=== PATIENT | female | born 1995 | race Caucasian/White ===

== ENCOUNTER 2016-07-01 12:23 | Emergency (ER) | payer OTHER ==
[2016-07-01 12:28] VITALS: BP 126/80
[2016-07-01] MEDS ORDERED: PREDNISONE 20 MG TABLET PO ONE (12:36)
[2016-07-01] MEDS ORDERED: DIPHENHYDRAMINE HCL 50 MG CAPSULE PO ONE (12:37)
[2016-07-01] MEDS ORDERED: FAMOTIDINE 20 MG TABLET PO ONE (12:37)
--- NOTE | 2016-07-01 12:37 | ER Document Report ---
ED Medical Screen (RME) - General Stated Complaint: SKIN ISSUE Notes: 21 yo female c/o hive like rash since last night. no new contacts. no trouble breathing or swallowing TRAVEL OUTSIDE OF THE [place] IN LAST 30 DAYS: No Past Medical History - Past Medical History Cardiac Medical History: Denies: Hx Atrial Fibrillation, Hx Congestive Heart Failure, Hx Heart Attack , Hx Hypercholesterolemia, Hx Hypertension Pulmonary Medical History: Denies: Hx Asthma, Hx Bronchitis, Hx COPD, Hx Pneumonia, Hx Tuberculosis Neurological Medical History: Denies: Hx Migraine, Hx Seizures Endocrine Medical History: Denies: Hx Diabetes Mellitus Type 1, Hx Diabetes Mellitus Type 2 Renal/ Medical History: Denies: Hx End Stage Renal Disease, Hx Kidney Stones GI Medical History: Denies: Hx Gastroesophageal Reflux Disease, Hx Hiatal Hernia , Hx Ulcer Musculoskeltal Medical History: Denies Hx Arthritis, Reports Hx Musculoskeletal Trauma - fx arm Psychiatric Medical History: Denies: Hx Attention Deficit Hyperactivity Disorder, Hx Bipolar Disorder, Hx Depression, Hx Schizophrenia Traumatic Medical History: Reports: Hx Fractures - arm Past Surgical History: Reports: Hx Tubal Ligation. Denies: Hx Abdominal Surgery , Hx Appendectomy, Hx Bowel Surgery, Hx Breast Surgery, Hx Cardiac Catheterization, Hx Cardiac Surgery, Hx Section, Hx Cholecystectomy, Hx Genitourinary Surgery, Hx Gynecologic Surgery, Hx Hysterectomy, Hx Kidney ( Renal Surgery), Hx Mastectomy, Hx Neurologic Surgery, Hx Nose Surgery, Hx Open Heart Surgery, Hx Oral Surgery, Hx Orthopedic Surgery, Hx Pancreatic Surgery, Hx Pituitary Surgery, Hx Rectal Surgery, Hx Thyroid Surgery, Hx Tonsillectomy, Hx Urinary Tract Surgery, Hx Vascular Surgery - Immunizations Immunizations up to date: No Hx Diphtheria, Pertussis, Tetanus Vaccination: No Physical Exam - Vital signs Vitals: Temp Pulse Resp BP Pulse Ox 97.7 F 100 18 126/80 H 99 07/01/16 12:27 07/01/16 12:27 07/01/16 12:27 07/01/16 12:27 07/01/16 12:27 Course - Vital Signs Vital signs: Temp Pulse Resp BP Pulse Ox 97.7 F 100 18 126/80 H 99 07/01/16 12:27 07/01/16 12:27 07/01/16 12:27 07/01/16 12:27 07/01/16 12:27
--- NOTE | 2016-07-01 13:37 | ER Document Report ---
ED Allergic Reaction - General Chief Complaint: Rash Stated Complaint: SKIN ISSUE Mode of Arrival: Ambulatory Information source: Patient Notes: 21-year-old female presents to the emergency department complaining of itchy rash to bilateral upper extremities, thighs, and trunk. She reports symptoms began yesterday evening after sleeping in a hotel bed. Denies obvious unknown allergen. Reports other family members who stayed with her do not have any symptoms. Denies fever, difficulty breathing or swallowing. TRAVEL OUTSIDE OF THE [place] 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 - Social History Smoking Status: Never Smoker Chew tobacco use (# tins/day): No Frequency of alcohol use: Occasional Drug Abuse: Marijuana Lives with: Family Family History: DM, Hyperlipidemia, Hypertension Patient has suicidal ideation: No Patient has homicidal ideation: No - Past Medical History Cardiac Medical History: Denies: Hx Atrial Fibrillation, Hx Congestive Heart Failure, Hx Heart Attack , Hx Hypercholesterolemia, Hx Hypertension Pulmonary Medical History: Denies: Hx Asthma, Hx Bronchitis, Hx COPD, Hx Pneumonia, Hx Tuberculosis Neurological Medical History: Denies: Hx Migraine, Hx Seizures Endocrine Medical History: Denies: Hx Diabetes Mellitus Type 1, Hx Diabetes Mellitus Type 2 Renal/ Medical History: Denies: Hx End Stage Renal Disease, Hx Kidney Stones, Hx Peritoneal Dialysis GI Medical History: Denies: Hx Gastroesophageal Reflux Disease, Hx Hiatal Hernia , Hx Ulcer Musculoskeltal Medical History: Denies Hx Arthritis, Reports Hx Musculoskeletal Trauma - fx arm Psychiatric Medical History: Denies: Hx Attention Deficit Hyperactivity Disorder, Hx Bipolar Disorder, Hx Depression, Hx Schizophrenia Traumatic Medical History: Reports: Hx Fractures - arm Past Surgical History: Reports: Hx Tubal Ligation. Denies: Hx Abdominal Surgery , Hx Appendectomy, Hx Bowel Surgery, Hx Breast Surgery, Hx Cardiac Catheterization, Hx Cardiac Surgery, Hx Section, Hx Cholecystectomy, Hx Genitourinary Surgery, Hx Gynecologic Surgery, Hx Hysterectomy, Hx Kidney ( Renal Surgery), Hx Mastectomy, Hx Neurologic Surgery, Hx Nose Surgery, Hx Open Heart Surgery, Hx Oral Surgery, Hx Orthopedic Surgery, Hx Pancreatic Surgery, Hx Pituitary Surgery, Hx Rectal Surgery, Hx Thyroid Surgery, Hx Tonsillectomy, Hx Urinary Tract Surgery, Hx Vascular Surgery - Immunizations Immunizations up to date: No Hx Diphtheria, Pertussis, Tetanus Vaccination: No Review of Systems - Review of Systems Constitutional: No symptoms reported EENT: No symptoms reported Cardiovascular: No symptoms reported Respiratory: No symptoms reported Gastrointestinal: No symptoms reported Genitourinary: No symptoms reported Female Genitourinary: No symptoms reported Musculoskeletal: No symptoms reported Skin: See HPI Hematologic/Lymphatic: No symptoms reported Neurological/Psychological: No symptoms reported -: Yes All other systems reviewed and negative Physical Exam - Vital signs Vitals: Temp Pulse Resp BP Pulse Ox 97.7 F 100 18 126/80 H 99 07/01/16 12:27 07/01/16 12:27 07/01/16 12:27 07/01/16 12:27 07/01/16 12:27 - General General appearance: Appears well, Alert In distress: None - HEENT Head: Normocephalic, Atraumatic Eyes: Normal Pupils: PERRL Ears: Normal External canal: Normal Tympanic membrane: Normal Sinus: Normal Nasal: Normal Mouth/Lips: Normal Mucous membranes: Normal, Moist Pharynx: Normal. No: Blood in hypopharynx, Erythema, Exudate, Peritonsillar abscess, Post nasal drainage, Retropharyngeal abscess, Tonsillar hypertrophy, Uvular edema, Potential airway comprom., Other Neck: Normal. No: Anterior cervical chain, Posterior cervical chain, Lymphadenopathy, Meningismus, Subcutaneous emphysema - Respiratory Respiratory status: No respiratory distress Chest status: Nontender Breath sounds: Normal Chest palpation: Normal - Cardiovascular Rhythm: Regular Heart sounds: Normal auscultation Murmur: No Pulses: Normal: Radial Normal capillary refill: Yes - Abdominal Inspection: Normal Distension: No distension Bowel sounds: Normal Tenderness: Nontender Organomegaly: No organomegaly - Skin Skin Temperature: Warm Skin Moisture: Dry Skin Color: Normal Skin irregularity: Rash - Scattered mildly erythematous, maculopapular rash to bilateral upper extremity, thighs, and lower trunk area. No swelling, induration, warmth, or drainage. Course - Re-evaluation Re-evalutation: 07/01/16 13:47 Patient hemodynamically stable, in no distress, afebrile. Will treat for likely uncomplicated allergic reaction at this time. Patient reports rash after initial dose of prednisone, Pepcid, and Benadryl in RME. Patient appears table for discharge and agrees with home care, follow-up, and ED return precautions. - Vital Signs Vital signs: Temp Pulse Resp BP Pulse Ox 97.7 F 100 18 126/80 H 99 07/01/16 12:27 07/01/16 12:27 07/01/16 12:27 07/01/16 12:27 07/01/16 12:27 Discharge - Discharge Clinical Impression: Allergic dermatitis Condition: Stable Disposition: HOME, SELF-CARE Additional Instructions: ACUTE ALLERGIC REACTION: Your symptoms are due to an allergic reaction. Allergy can cause hives, swelling of the hands, feet, and face, hoarseness, and difficulty swallowing or breathing. It may be due to exposure to medication, animal dander, foods, infection, or insect bites. Medication is a common cause, even when prior use of this same medication caused no problems. Acute treatment may include adrenalin and antihistamines. Usually, the specific allergic agent can't be identified unless repeated episodes occur. Home treatment includes the following: (1) Stop any suspicious medications. This will be discussed with you. (2) Oral antihistamines for the next four to five days. Example, diphenhydramine (Benadryl) every four hours. (3) You may also use cimetidine (Tagamet), ranitidine (Zantac), or famotidine ( Pepcid) every four hours if diphenhydramine is not controlling itching and hives. (4) Avoid aspirin until the hives completely disappear. (5) Avoid hot baths or showers until the hives are completely gone. Call the doctor if faintness, difficulty swallowing, tightness in the chest , or wheezing occurs. STEROID MEDICATION: You have been given a medicine of the cortisone/steroid class. This medication is used to control inflammation or allergy. It is usually only given for a short period of time, until the acute process subsides. There are usually no side effects from short-term use of cortisone-like medications. Some persons feel an increased sense of well-being and are not sleepy at bedtime. Long-term use of cortisone medications is best avoided, unless required for a severe condition. If your condition does not remit, or relapses after the course of corticosteroid medication, you should consult your physician. ACID-SUPPRESSING MEDICATION: You have a prescription for medicine which reduces the stomach's secretion of acid. Examples include Zantac, Tagament, and Pepcid. These drugs are often used to allow healing of ulcers or esophagitis. They may be needed to prevent recurrence of ulcers in some patients, or to prevent damage from acid reflux in the esophagus. Take all medication as prescribed, even after the pain is gone. Regular antacids may be added as needed if you have symptoms while taking this medicine. These medications sometimes are prescribed for allergic reactions because they have anti-histaminic effects and relieve the rash and itching of the reaction. There are usually no side effects from this medication. But, in rare cases and particularly in the elderly, serious problems can occur. Contact your doctor if there is fever, rash, hallucinations, confusion, or unusual bruising. Contact your doctor at once if you develop lightheadedness, black or bloody stool, or bloody vomitus. ANTIHISTAMINES: An antihistamine has been given and/or prescribed to control your symptoms. Antihistamines are used for many reasons, including itching, watering eyes, runny nose, allergic swelling, hives, and insect stings. Antihistamines may cause drowsiness, especially with the first dose. Do not operate machinery or drive while under the effects of the medication. Other common side effects include dry mouth and eyes. In older persons, antihistamines can occasionally cause urinary retention, constipation, and trouble focusing the eyes. Do not combine the medication with alcohol, or with any other medication without talking to your doctor. USE OF DIPHENHYDRAMINE: The use of diphenhydramine (Benadryl) has been recommended to control allergic symptoms. The 25 mg strength is available over- the-counter, as well as the elixir. This antihistamine is used for many symptoms. It's useful for itching, watering eyes and nose, allergic swelling, hives, and insect stings. The medication can be repeated four times daily. Age Elixir (12.5 mg/tsp) 25 mg pill 2-3 yr 1/2 tsp 4-8 yr 1 tsp 9-14 yr 2 tsp one tab adult 1-2 tabs Antihistamines may cause drowsiness, especially with the first dose. Do not operate machinery or drive while under the effects of the medication. Do not combine the medication with alcohol, or with any other medication without talking to your doctor. FOLLOW-UP CARE: Follow-up with your primary care provider this week. Return to the emergency department for any worsening symptoms or concerns. Prescriptions: Diphenhydramine HCl [Benadryl] 25 mg PO Q6H PRN #15 capsule PRN Reason: Itching Famotidine [Pepcid 40 mg Tablet] 40 mg PO DAILY #5 tablet Prednisone [Deltasone 10 mg Tablet] 10 mg PO ASDIR PRN #21 tablet PRN Reason:
== END 2016-07-01 13:55 | disposition home or self-care (01) ==
LOC: ER 12:23
DX: L30.9 Dermatitis, unspecified (principal); Z98.51 Tubal ligation status
CPT/HCPCS: 99282; J7512

== ENCOUNTER 2016-10-26 18:21 | Emergency (ER) | payer OTHER ==
[2016-10-26 18:27] VITALS: BP 127/71
== END 2016-10-26 22:00 | disposition left against medical advice (07) ==
LOC: ER 18:21
DX: Z53.9 Procedure and treatment not carried out, unspecified reason (principal); N93.9 Abnormal uterine and vaginal bleeding, unspecified

== ENCOUNTER 2018-02-02 08:59 | Outpatient (CLI) | payer MEDICAID ==
[2018-02-02 10:00] LABS: ABSOLUTE BASOPHILS # (AUTO) 0.1 10^3/uL (0.0-0.2); ABSOLUTE EOSINOPHILS # (AUTO) 0.1 10^3/uL (0.0-0.6); ABSOLUTE LYMPHOCYTES (AUTO) 1.6 10^3/uL (0.5-4.7); ABSOLUTE MONOCYTES (AUTO) 0.8 10^3/uL (0.1-1.4); ABSOLUTE NEUT (AUTO) 8.2 10^3/uL (1.7-8.2); BASOPHILS % (AUTO) 0.5 % (0-2); EOSINOPHILS % (AUTO) 0.9 % (0-6); HEMATOCRIT 29.2 % (36.0-47.0); HEMOGLOBIN 9.7 g/dL (12.0-15.5); MEAN CORPUSCULAR HEMOGLOBIN 25.8 pg (27.0-33.4); MEAN CORPUSCULAR HGB CONC 33.2 g/dL (32.0-36.0); MEAN CORPUSCULAR VOLUME 78 fl (80-97); MONOCYTES % (AUTO) 7.5 % (3-13); PLATELET COUNT 309 10^3/uL (150-450); RED BLOOD COUNT 3.75 10^6/uL (3.72-5.28); RED CELL DISTRIBUTION WIDTH 14.5 % (11.5-14.0); SEGMENTED NEUTROPHILS % (AUTO) 76.1 % (42-78); TOTAL CELLS COUNTED % (AUTO) 100 %; WHITE BLOOD COUNT 10.8 10^3/uL (4.0-10.5)
[2018-02-02 10:21] LABS: ALANINE AMINOTRANSFERASE 14 U/L (9-52); ALKALINE PHOSPHATASE 194 U/L (38-126); ANION GAP 8 (5-19); ASPARTATE AMINO TRANSFERASE 9 U/L (14-36); BILIRUBIN,DIRECT 0.3 mg/dL (0.0-0.4); BILIRUBIN,TOTAL 0.4 mg/dL (0.2-1.3); BLOOD UREA NITROGEN 5 mg/dL (7-20); CALCIUM 9.1 mg/dL (8.4-10.2); CARBON DIOXIDE 22 mmol/L (22-30); CHLORIDE 107 mmol/L (98-107); GLUCOSE 77 mg/dL (75-110); POTASSIUM 4.1 mmol/L (3.6-5.0); SODIUM 137.3 mmol/L (137-145); TOTAL PROTEIN 5.9 g/dL (6.3-8.2); URIC ACID 4.1 mg/dL (2.5-6.2)
[2018-02-02 10:37] LABS: AMORPHOUS SEDIMENT,URINE 2+ /HPF; APPEARANCE,URINE TURBID; BILIRUBIN,URINE NEGATIVE (NEGATIVE); COLOR,URINE YELLOW; GLUCOSE, URINE NEGATIVE (NEGATIVE); KETONES,URINE NEGATIVE (NEGATIVE); LEUKOCYTE ESTERASE,URINE SMALL (NEGATIVE); NITRITE,URINE NEGATIVE (NEGATIVE); PROTEIN,URINE NEGATIVE (NEGATIVE); URINE SPECIFIC GRAVITY 1.015; UROBILINOGEN,URINE NEGATIVE mg/dL (<2.0)
[2018-02-02 10:49] LABS: UR PRO/CREAT RATIO RESULT 0.1 mg/mg (0.0-0.2); URINE CREATININE 101.7 mg/dL (16-327); URINE PROTEIN 14.4 mg/dL (<12)
[2018-02-02 10:50] LABS: URINE AMPHETAMINES SCREEN NEGATIVE; URINE BARBITURATES SCREEN NEGATIVE; URINE BENZODIAZEPINES SCREEN NEGATIVE; URINE COCAINE SCREEN NEGATIVE; URINE METHADONE SCREEN NEGATIVE; URINE PHENCYCLIDINE SCREEN NEGATIVE
[2018-02-02 10:57] LABS: URINE MARIJUANA (THC) SCREEN UNCONFIRMED POSITIVE
--- NOTE | 2018-02-02 11:18 | Non Stress Test Report ---
Non Stress Test Datetime Report Generated by CPN: 02/02/2018 11:18 DEMOGRAPHIC EGA NST: 39.4 INDICATION Indication for Study: Ordered by Provider MONITORING Monitor Explained: Monitor Explained; Test Explained; Patient Verbalized Understanding Time on Monitor: 02/02/2018 09:30 Time off Monitor: 02/02/2018 10:59 NST Duration: 89 NST INTERVENTIONS NST Interventions: PO Hydration; Reposition Patient Physician Notified NST: ErnaKalpana Denton, CNM BABY A: [id number] BABY A Movement : Present Contraction Frequency : 0 FHR Baseline : 120 Accelerations : 15X15 Decelerations : None Variability : Moderate 6-25bpm NST Review: Meets Criteria for Reactive NST NST Review and Verified By : KIM Cadrozo NSJorge Results: Reactive NST REPORT Report Trigger: Send Report
== END 2018-02-02 11:14 | disposition home or self-care (01) ==
LOC: LC 08:59
PROVIDERS: ATTEND Obstetrics & Gynecology Gynecology
PROC: 4A1HXCZ Monitoring of Products of Conception, Cardiac Rate, External Approach (ICD-10-PCS; principal; 2018-02-02)
DX: O16.3 Unspecified maternal hypertension, third trimester (principal); Z3A.39 39 weeks gestation of pregnancy
CPT/HCPCS: 36415; 59025; 80053; 80307; 81001; 82570; 83615; 84156; 84550; 85025

== ENCOUNTER 2018-02-03 22:41 | Outpatient (CLI) | payer MEDICAID ==
[2018-02-03 23:29] LABS: APPEARANCE,URINE SLIGHTLY-CLOUDY; BILIRUBIN,URINE NEGATIVE (NEGATIVE); COLOR,URINE YELLOW; GLUCOSE, URINE NEGATIVE (NEGATIVE); KETONES,URINE NEGATIVE (NEGATIVE); LEUKOCYTE ESTERASE,URINE SMALL (NEGATIVE); NITRITE,URINE NEGATIVE (NEGATIVE); PROTEIN,URINE NEGATIVE (NEGATIVE); URINE SPECIFIC GRAVITY 1.008; UROBILINOGEN,URINE NEGATIVE mg/dL (<2.0)
[2018-02-03 23:37] LABS: ABSOLUTE BASOPHILS # (AUTO) 0.1 10^3/uL (0.0-0.2); ABSOLUTE EOSINOPHILS # (AUTO) 0.1 10^3/uL (0.0-0.6); ABSOLUTE LYMPHOCYTES (AUTO) 2.2 10^3/uL (0.5-4.7); ABSOLUTE NEUT (AUTO) 8.1 10^3/uL (1.7-8.2); BASOPHILS % (AUTO) 0.6 % (0-2); EOSINOPHILS % (AUTO) 1.2 % (0-6); HEMATOCRIT 27.3 % (36.0-47.0); HEMOGLOBIN 9.2 g/dL (12.0-15.5); LYMPHOCYTES % (AUTO) 18.8 % (13-45); MEAN CORPUSCULAR HEMOGLOBIN 26.1 pg (27.0-33.4); MEAN CORPUSCULAR HGB CONC 33.7 g/dL (32.0-36.0); MEAN CORPUSCULAR VOLUME 78 fl (80-97); MONOCYTES % (AUTO) 8.8 % (3-13); PLATELET COUNT 291 10^3/uL (150-450); RED BLOOD COUNT 3.52 10^6/uL (3.72-5.28); RED CELL DISTRIBUTION WIDTH 14.3 % (11.5-14.0); SEGMENTED NEUTROPHILS % (AUTO) 70.6 % (42-78); TOTAL CELLS COUNTED % (AUTO) 100 %; WHITE BLOOD COUNT 11.4 10^3/uL (4.0-10.5)
[2018-02-03 23:46] LABS: URINE AMPHETAMINES SCREEN NEGATIVE; URINE BARBITURATES SCREEN NEGATIVE; URINE BENZODIAZEPINES SCREEN NEGATIVE; URINE COCAINE SCREEN NEGATIVE; URINE METHADONE SCREEN NEGATIVE; URINE PHENCYCLIDINE SCREEN NEGATIVE
[2018-02-03 23:50] LABS: UR PRO/CREAT RATIO RESULT 0.3 mg/mg (0.0-0.2); URINE CREATININE 55.5 mg/dL (16-327); URINE PROTEIN 19.2 mg/dL (<12)
[2018-02-03 23:59] LABS: ALANINE AMINOTRANSFERASE 25 U/L (9-52); ALKALINE PHOSPHATASE 195 U/L (38-126); ANION GAP 8 (5-19); ASPARTATE AMINO TRANSFERASE 12 U/L (14-36); BILIRUBIN,DIRECT 0.2 mg/dL (0.0-0.4); BILIRUBIN,TOTAL 0.3 mg/dL (0.2-1.3); BLOOD UREA NITROGEN 6 mg/dL (7-20); CALCIUM 9.1 mg/dL (8.4-10.2); CARBON DIOXIDE 21 mmol/L (22-30); CHLORIDE 107 mmol/L (98-107); GLUCOSE 74 mg/dL (75-110); SODIUM 136.3 mmol/L (137-145); TOTAL PROTEIN 6.1 g/dL (6.3-8.2)
[2018-02-04] MEDS ORDERED: BUTALB/ACETAMINOPHEN/CAFFEINE 1 TAB EACH PO ONE (00:03)
[2018-02-04 00:04] LABS: URINE MARIJUANA (THC) SCREEN UNCONFIRMED POSITIVE
[2018-02-04] MEDS ORDERED: BUTALB/ACETAMINOPHEN/CAFFEINE 1 TAB EACH ONE (00:06)
== END 2018-02-04 00:54 | disposition home or self-care (01) ==
LOC: LC 22:41
PROVIDERS: ATTEND Student in an Organized Health Care Education/Training Program
PROC: 4A1HXCZ Monitoring of Products of Conception, Cardiac Rate, External Approach (ICD-10-PCS; principal; 2018-02-03)
DX: O47.1 False labor at or after 37 completed weeks of gestation (principal); Z3A.39 39 weeks gestation of pregnancy
CPT/HCPCS: 36415; 83615; 84156; 84550; 82570; 85025; 81005; 80053; 80307; 59025; J3490

== ENCOUNTER 2018-02-05 09:29 | Inpatient (IN) | payer MEDICAID ==
[2018-02-05] MEDS: RINGERS SOLUTION,LACTATED 1,000 ML IV PRN (12:12)
[2018-02-05] MEDS ORDERED: RINGERS SOLUTION,LACTATED 1,000 ML IV PRN (12:17)
[2018-02-05] MEDS ORDERED: DINOPROSTONE 10 MG VAGINAL INSERT.SR PV ONE (12:17)
[2018-02-05] MEDS ORDERED: ACETAMINOPHEN 325 MG TABLET PO PRN (12:17)
[2018-02-05] MEDS ORDERED: RINGERS SOLUTION,LACTATED 300 ML IV ONE (12:17)
[2018-02-05] MEDS ORDERED: MAG HYDROX/AL HYDROX/SIMETH SUSP 30 ML UDCUP PO PRN (12:17)
[2018-02-05] MEDS ORDERED: ZOLPIDEM TARTRATE 5 MG TABLET PO PRN (12:17)
[2018-02-05] MEDS ORDERED: RINGERS SOLUTION,LACTATED 1,000 ML IV ONE (12:17)
[2018-02-05] MEDS ORDERED: DINOPROSTONE 10 MG VAGINAL INSERT.SR ONE ×2 (12:28→15:12)
[2018-02-05 14:07] LABS: ABSOLUTE BASOPHILS # (AUTO) 0.1 10^3/uL (0.0-0.2); ABSOLUTE EOSINOPHILS # (AUTO) 0.1 10^3/uL (0.0-0.6); ABSOLUTE LYMPHOCYTES (AUTO) 1.6 10^3/uL (0.5-4.7); ABSOLUTE MONOCYTES (AUTO) 0.6 10^3/uL (0.1-1.4); ABSOLUTE NEUT (AUTO) 8.2 10^3/uL (1.7-8.2); BASOPHILS % (AUTO) 0.5 % (0-2); EOSINOPHILS % (AUTO) 0.7 % (0-6); HEMATOCRIT 29.7 % (36.0-47.0); HEMOGLOBIN 9.9 g/dL (12.0-15.5); LYMPHOCYTES % (AUTO) 15.2 % (13-45); MEAN CORPUSCULAR HEMOGLOBIN 25.7 pg (27.0-33.4); MEAN CORPUSCULAR HGB CONC 33.4 g/dL (32.0-36.0); MEAN CORPUSCULAR VOLUME 77 fl (80-97); MONOCYTES % (AUTO) 5.8 % (3-13); PLATELET COUNT 310 10^3/uL (150-450); RED BLOOD COUNT 3.86 10^6/uL (3.72-5.28); RED CELL DISTRIBUTION WIDTH 14.4 % (11.5-14.0); SEGMENTED NEUTROPHILS % (AUTO) 77.8 % (42-78); TOTAL CELLS COUNTED % (AUTO) 100 %; WHITE BLOOD COUNT 10.6 10^3/uL (4.0-10.5)
[2018-02-05] MEDS ORDERED: OXYTOCIN/NORMAL SALINE 20 UNIT/1,000 ML RTUINJ IV PRN (15:43)
--- NOTE | 2018-02-05 17:06 | HISTORY AND PHYSICAL E ---
History and Physical NAME: NELLY GRIJALVA : 1995 AGE: 22Y ADMITTED: 02/05/2018 ROOM: LR200 HISTORY OF PRESENT ILLNESS: The patient is a 22-year-old, 3, para 0-0-2-0, at 40 weeks gestational age who presented to triage to submit her 24 hour urine protein that was handed off to her yesterday. The patient came back with also elevated blood pressures ranging 140s/90s per nursing staff report. The patient denies any fever, chills, nausea, vomiting, chest pain, shortness of breath, headaches, double vision, blurry vision, right upper quadrant pain. The patient denies any vaginal bleeding or leakage of fluid. The patient reports good movement. The 24 hour urine protein came back at 549 mg, 24 hour urine protein coupled with her elevated blood pressures being in the 140s/90s yesterday and today the patient meets criteria of preeclampsia without severe features. PAST MEDICAL HISTORY: None. PAST OBSTETRICAL HISTORY: 1, 2 spontaneous abortions/miscarriages. No D and C for a year. PAST SURGICAL HISTORY: In 2018 had a tooth extraction. MEDICATIONS: The patient is taking Tylenol p.r.n. and vitamins. SOCIAL HISTORY: Denies smoking, drinking, or illicit drug use despite having a urine drug screen that depicted positive marijuana and the patient has a history of being a former smoker. FAMILY HISTORY: Noncontributory. PHYSICAL EXAMINATION: VITAL SIGNS: Blood pressure 140/90, pulse of 92, respiration rate of 16, temperature 98.2. heart tones basically in line of 135 beats per minute, present accels, no decelerations or absent decelerations. Moderate variability. Tocometer; no contractions initially on monitor but since the patient started induction she is currently gm every 3-5 minutes on Cervidil. GENERAL: The patient is awake, alert, oriented x3, in no apparent distress. CARDIAC: Regular rate and rhythm. No murmur, gallops, or rubs. LUNGS: Clear to auscultation bilaterally. No wheezes, rales, or rhonchi. ABDOMEN: Gravid, bowel sounds present. movements palpated. No hepatosplenomegaly. EXTREMITIES: DTRs 1+. No clonus, no cyanosis, no edema. Two plus pulses bilaterally. CERVICAL EXAM: Per nursing staff was 1 cm dilated, 50% effaced, and -3 station. LABORATORY DATA: CBC depicted white blood cell of 10.6, hemoglobin and hematocrit of 9.9 and 29.7 respectively, platelet count of 310. Chemistry depicted sodium 136, potassium of 4.0, chloride of 107, carbon dioxide 21, BUN of 6, and creatinine of 0.47, glucose random of 74. Uric acid is 4.0. AST and ALT of 12 and 25 respectively. LDH of 152. A 24 hour urine depicts 549 mg/day. Urine drug screen all negative except for an unconfirmed positive on marijuana. ASSESSMENT AND PLAN: The patient is a 22-year-old, 3, para 0-0-2-0 at 40 weeks gestational age with a diagnosis of preeclampsia without severe features. 1. Admit to labor and delivery for medical induction of labor. 2. Initiation with Cervidil. The patient was instituted on Cervidil and then a few hours later the patient took it out accidentally in the bathroom. We will reinsert another Cervidil dose for a duration of 12 hours. Once Cervidil is taken out the cervical exam assessment will be performed and depending on the cervical exam whether an artificial rupture of membrane will be performed at that time with augmentation of Pitocin 2 x 2 q.20 minutes. 3. The patient was consented for the vaginal delivery, a potential and the patient was aware of the indications for appropriate . 4. The patient is aware if preeclampsia with severe features do develop magnesium sulfate will be instituted for seizure prophylaxis with strict I and Os and monitoring urine output. 5. The patient has agreed and consented to proceed with the medical induction of labor. DICTATING PHYSICIAN: Rachael Crandall MD [id number] PHY#: [id number] ID: [id number] JOB#: [id number] ACCT: [id number] cc:Rachael Crandall >
[2018-02-05] MEDS ORDERED: ZOLPIDEM TARTRATE 5 MG TABLET ONE (22:19)
[2018-02-06] MEDS ORDERED: MISOPROSTOL 0.1 MG TABLET ONE (04:53)
[2018-02-06] MEDS ORDERED: MISOPROSTOL 0.1 MG TABLET PV ONE (04:55)
[2018-02-06] MEDS: RINGERS SOLUTION,LACTATED 1,000 ML IV PRN (05:22)
--- NOTE | 2018-02-06 06:11 | PROGRESS NOTE E ---
Progress Note NAME: NELLY GRIJALVA : 1995 AGE: 22Y DATE: 02/06/2018 ROOM: LR200 TIME OF DICTATION: 0521 SUBJECTIVE: The patient seen and examined. The Cervidil came out. The patient had her cervix checked. It was unchanged at 1 cm dilated, 50% effaced, -3. The patient still gm. She feels comfortable. Denies any vaginal bleeding or leakage of fluid. Reports good movement. OBJECTIVE: VITAL SIGNS: Stable, with blood pressure 130s to 140s/80s to 90s, with pulse in the 80s-90s, respiration rate of 16. Continuous external monitoring depicts heart tones of 135 beats per minute baseline with present accelerations, absent decelerations, with moderate variability. Tocometer depicts contractions every 2-7 minutes. VAGINAL EXAM: Depicts 1, 50, and -3. ASSESSMENT: 1 at 40 weeks and 2 days gestational age being medically induced for preeclampsia without severe features, status post Cervidil. PLAN: 1. Cytotec 25 mcg per vagina inserted for further ripening, and reassess the cervix in 4 hours for further assessment of whether needs another Cytotec or augmentation with Pitocin. The patient is aware of the plan to continue the medical induction for preeclampsia. 2. The patient is also aware if she develops preeclampsia with severe features, she will be instituted on magnesium sulfate for seizure prophylaxis. 3. Will turn over the patient to Dr. Vo, who will be the receiving OB-[employer]ORTER later in the shift in regard to the status of the patient. DICTATING PHYSICIAN: Rachael Crandall MD [id number] PHY#: [id number] ID: [id number] JOB#: [id number] ACCT: [id number] cc: >
[2018-02-06] MEDS ORDERED: OXYTOCIN/NORMAL SALINE 20 UNIT/1,000 ML RTUINJ IV PRN ×2 (09:27→10:39)
[2018-02-06] MEDS ORDERED: OXYTOCIN 10 UNIT/ML VIAL ONE (09:29)
[2018-02-06 16:15] LABS: HEMATOCRIT 29.9 % (36.0-47.0); HEMOGLOBIN 9.9 g/dL (12.0-15.5); MEAN CORPUSCULAR HEMOGLOBIN 25.5 pg (27.0-33.4); MEAN CORPUSCULAR HGB CONC 33.2 g/dL (32.0-36.0); MEAN CORPUSCULAR VOLUME 77 fl (80-97); PLATELET COUNT 316 10^3/uL (150-450); RED CELL DISTRIBUTION WIDTH 14.2 % (11.5-14.0); WHITE BLOOD COUNT 14.4 10^3/uL (4.0-10.5)
[2018-02-06 16:34] LABS: ALANINE AMINOTRANSFERASE 16 U/L (9-52); ALBUMIN 3.1 g/dL (3.5-5.0); ALKALINE PHOSPHATASE 228 U/L (38-126); ANION GAP 10 (5-19); ASPARTATE AMINO TRANSFERASE 14 U/L (14-36); BILIRUBIN,DIRECT 0.4 mg/dL (0.0-0.4); BILIRUBIN,TOTAL 0.5 mg/dL (0.2-1.3); BLOOD UREA NITROGEN 5 mg/dL (7-20); CALCIUM 9.3 mg/dL (8.4-10.2); CARBON DIOXIDE 20 mmol/L (22-30); CHLORIDE 106 mmol/L (98-107); GLUCOSE 90 mg/dL (75-110); POTASSIUM 3.6 mmol/L (3.6-5.0); SODIUM 135.6 mmol/L (137-145); TOTAL PROTEIN 6.4 g/dL (6.3-8.2); URIC ACID 4.1 mg/dL (2.5-6.2)
--- NOTE | 2018-02-06 19:09 | PDOC DISCHARGE SUMMARY ---
General - Admit/Disc Date/PCP Admission Date/Primary Care Provider: 02/05/18 11:22 Discharge Date: 02/06/18 - Discharge Diagnosis (1) Term Is this a current diagnosis for this admission?: Yes (2) Hypertension affecting Is this a current diagnosis for this admission?: Yes - Additional Information Home Medications: Vit Calc,Iron,Folic [ Vitamins] 1 each PO DAILY 02/02/18 Ranitidine HCl [Zantac 150 mg Tablet] 1 tab PO BID 02/05/18 History of Present Illness History of Present Illness: NELLY GRIJALVA is a 22 year old female Hospital Course Hospital Course: pt admitted with elevated blood pressure attempt to induce but unfavorable all labs acceptable and pt dced f/u wednesday or n Physical Exam - Physical Exam Vital Signs: Intake & Output 02/05/18 02/06/18 02/07/18 06:59 06:59 06:59 Intake Total 1000 1000 Balance 1000 1000 Weight 108 kg General appearance: PRESENT: no acute distress Respiratory exam: PRESENT: clear to auscultation edward Result Laboratory Results: 02/06/18 16:00 02/06/18 16:00 02/06/18 02/06/18 16:00 16:00 WBC 14.4 H RBC 3.90 Hgb 9.9 L Hct 29.9 L MCV 77 L MCH 25.5 L MCHC 33.2 RDW 14.2 H Plt Count 316 Sodium 135.6 L Potassium 3.6 Chloride 106 Carbon Dioxide 20 L Anion Gap 10 BUN 5 L Creatinine 0.43 L Est GFR ( Amer) > 60 Est GFR (Non-Af Amer) > 60 Glucose 90 Uric Acid 4.1 Calcium 9.3 Total Bilirubin 0.5 AST 14 ALT 16 Alkaline Phosphatase 228 H Total Protein 6.4 Albumin 3.1 L Plan Discharge Plan: home with 24 hour collection ordered
== END 2018-02-06 17:47 | disposition home or self-care (01) | DRG 781 ==
LOC: LC 09:29 → LR 11:22
PROVIDERS: ADMIT Obstetrics & Gynecology; ATTEND Obstetrics & Gynecology Gynecology
PROC: 3E0P7VZ Introduction of Hormone into Female Reproductive, Via Natural or Artificial Opening (ICD-10-PCS; principal; 2018-02-05)
PROC: 4A1HXCZ Monitoring of Products of Conception, Cardiac Rate, External Approach (ICD-10-PCS; 2018-02-05)
DX: O14.93 Unspecified pre-eclampsia, third trimester (principal); Z3A.40 40 weeks gestation of pregnancy
CPT/HCPCS: 36415; 59025; 80053; 84550; 85025; 85027; 86592; 86850; 86900; 86901; J2590; J3490

== ENCOUNTER 2018-02-07 20:12 | Inpatient (IN) | payer MEDICAID ==
[2018-02-07] MEDS ORDERED: RINGERS SOLUTION,LACTATED 300 ML IV ONE (20:33)
[2018-02-07 21:01] LABS: APPEARANCE,URINE SLIGHTLY-CLOUDY; BILIRUBIN,URINE NEGATIVE (NEGATIVE); COLOR,URINE YELLOW; GLUCOSE, URINE NEGATIVE (NEGATIVE); KETONES,URINE NEGATIVE (NEGATIVE); LEUKOCYTE ESTERASE,URINE MODERATE (NEGATIVE); NITRITE,URINE NEGATIVE (NEGATIVE); PROTEIN,URINE 30 mg/dL (NEGATIVE); URINE SPECIFIC GRAVITY 1.015
[2018-02-07] MEDS: RINGERS SOLUTION,LACTATED 1,000 ML IV PRN (21:02)
[2018-02-07 21:16] LABS: URINE AMPHETAMINES SCREEN NEGATIVE; URINE BENZODIAZEPINES SCREEN NEGATIVE; URINE COCAINE SCREEN NEGATIVE; URINE METHADONE SCREEN NEGATIVE; URINE PHENCYCLIDINE SCREEN NEGATIVE
[2018-02-07 21:19] LABS: ABSOLUTE BASOPHILS # (AUTO) 0.1 10^3/uL (0.0-0.2); ABSOLUTE EOSINOPHILS # (AUTO) 0.1 10^3/uL (0.0-0.6); ABSOLUTE LYMPHOCYTES (AUTO) 2.3 10^3/uL (0.5-4.7); ABSOLUTE MONOCYTES (AUTO) 1.1 10^3/uL (0.1-1.4); ABSOLUTE NEUT (AUTO) 8.4 10^3/uL (1.7-8.2); BASOPHILS % (AUTO) 0.5 % (0-2); EOSINOPHILS % (AUTO) 0.7 % (0-6); HEMATOCRIT 29.7 % (36.0-47.0); HEMOGLOBIN 9.8 g/dL (12.0-15.5); MEAN CORPUSCULAR HEMOGLOBIN 25.4 pg (27.0-33.4); MEAN CORPUSCULAR HGB CONC 33.1 g/dL (32.0-36.0); MEAN CORPUSCULAR VOLUME 77 fl (80-97); MONOCYTES % (AUTO) 9.1 % (3-13); PLATELET COUNT 299 10^3/uL (150-450); RED BLOOD COUNT 3.87 10^6/uL (3.72-5.28); RED CELL DISTRIBUTION WIDTH 14.5 % (11.5-14.0); SEGMENTED NEUTROPHILS % (AUTO) 70.7 % (42-78); TOTAL CELLS COUNTED % (AUTO) 100 %; WHITE BLOOD COUNT 11.9 10^3/uL (4.0-10.5)
[2018-02-07 21:19] LABS: URINE BARBITURATES SCREEN UNCONFIRMED POSITIVE; URINE MARIJUANA (THC) SCREEN UNCONFIRMED POSITIVE
[2018-02-07 21:25] LABS: UR PRO/CREAT RATIO RESULT 0.4 mg/mg (0.0-0.2); URINE CREATININE 122.8 mg/dL (16-327); URINE PROTEIN 49.9 mg/dL (<12)
[2018-02-07 21:49] LABS: ALANINE AMINOTRANSFERASE 18 U/L (9-52); ALKALINE PHOSPHATASE 230 U/L (38-126); ANION GAP 9 (5-19); ASPARTATE AMINO TRANSFERASE 14 U/L (14-36); BILIRUBIN,DIRECT 0.2 mg/dL (0.0-0.4); BILIRUBIN,TOTAL 0.3 mg/dL (0.2-1.3); BLOOD UREA NITROGEN 7 mg/dL (7-20); CALCIUM 9.7 mg/dL (8.4-10.2); CARBON DIOXIDE 21 mmol/L (22-30); CHLORIDE 107 mmol/L (98-107); GLUCOSE 70 mg/dL (75-110); POTASSIUM 3.8 mmol/L (3.6-5.0); SODIUM 136.9 mmol/L (137-145); TOTAL PROTEIN 6.2 g/dL (6.3-8.2); URIC ACID 4.1 mg/dL (2.5-6.2)
--- NOTE | 2018-02-07 21:52 | Admission Physical ---
Datetime Report Generated by CPN: 02/07/2018 21:51 CURRENT ADMISSION Indication for Induction: Post Dates; PreEclampsia Admit Impression : Term, Intrauterine ; Induction of Labor Admit Plan: Admit to Unit; Initiate Labor Induction Protocol ALLERGIES Medication Allergies: No Medication Allergies: latex (02/07/2018) Latex: Latex Allergies Food Allergies: n/a Environmental Allergies: n/a OBSTETRICAL HISTORY EDC: 02/05/2018 00:00 : 3 Para: 0 Term: 0 : 0 SAB: 2 IAB: 0 Ectopic: 0 Livin Cesareans: 0 VBACs: 0 Multiple Births: 0 Gestational Diabetes: No Rh Sensitization: No Incompetent Cervix: No BREONNA: No Infertility: No ART Treatment: No Uterine Anomaly: No IUGR: No Hx Previous C/S: No Macrosomia: No Hx Loss/Stillborn: No PIH: No Hx : No Placenta Previa/Abruption: No Depression/PP Depression: No PTL/PROM: No Post Hemorrhage: No Current Procedures: Ultrasound Obstetrical History Comments: G1- sab G2- sab G3-current SEE RECORDS Alcohol: No Marijuana : No Cocaine: No Other Illicit Drugs: No Cigarettes: Former Smoker. 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 Heart Disease: No Hosp/Surgery: No Autoimmune Disorder: No Anesthetic Complications: No Kidney Disease: No Abnormal Pap Smear: No Neuro/Epilepsy: No Psychiatric Disorders: No Other Medical Diseases: No Hepatitis/Liver Disease: No Significant Family History: No Varicosities/Phlebitis: No Trauma/Violence : No Thyroid Dysfunction: No INFECTIOUS HISTORY Gonorrhea: No Genital Herpes: No Chlamydia: Yes Tuberculosis: No Syphilis: No Hepatitis: No HIV/AIDS Exposure: No Rash or Viral Illness: No HPV: No Infectious History Comments: HX CHLAMYDIA PHYSICAL EXAM General: Normal HEENT: Normal Neurologic: Normal Thyroid: Normal Heart: Normal Lungs: Normal Breast: Normal Back: Normal Abdomen: Normal Genitourinary Exam: Normal Extremities: Normal DTRs: Normal Pelvic Type: Adequate Vital Signs: Reviewed VAGINAL EXAM Dilatation: 2 Effacement: 50 Station: -3 Contraction Comments: irregular MEMBRANES Membranes: Intact FETUS A Monitoring: External US FHR- Baseline: 120s Variability: Moderate 6-25bpm Accelerations: 15X15 Decelerations: None Admit Comment: Pt's cervix 2/50%/-3 in the office. Pt underwent cervical ripening over the weekend. Carter catheter bulb placed in cervix (no change) for ripening/induction. Pt has elevated BPs on admission and is asymptomatic. PLANS FOR LABOR AND DELIVERY Labor and Delivery: Plan Pain Management: Epidural Feeding Preference: Formula Benefit of Breast Feed Discussed: Yes Circumcision: N/A INFORMED CONSENT Signature: with User ID: [email or web address]
[2018-02-08] MEDS ORDERED: NALBUPHINE HCL INJ 10 MG/1 ML AMPULE INJ ONE (00:01)
[2018-02-08] MEDS ORDERED: PROMETHAZINE HCL INJ 25 MG/1 ML VIAL IV ONE (00:01)
[2018-02-08] MEDS ORDERED: NALBUPHINE HCL INJ 10 MG/1 ML AMPULE ONE (00:08)
[2018-02-08] MEDS ORDERED: PROMETHAZINE HCL INJ 25 MG/1 ML VIAL ONE (00:08)
[2018-02-08] MEDS: RINGERS SOLUTION,LACTATED 1,000 ML IV PRN ×2 (00:22→13:00)
[2018-02-08] MEDS ORDERED: OXYTOCIN/NORMAL SALINE 20 UNIT/1,000 ML RTUINJ IV PRN ×2 (03:18→17:24)
[2018-02-08] MEDS ORDERED: LIDOCAINE 1% INJ-PF (10 MG/ML) 30 ML SDV ONE (04:08)
[2018-02-08] MEDS ORDERED: OXYTOCIN/NORMAL SALINE 20 UNIT/1,000 ML RTUINJ ONE ×2 (04:08→19:06)
[2018-02-08] MEDS ORDERED: MISOPROSTOL 0.2 MG TABLET ONE (04:08)
[2018-02-08] MEDS ORDERED: MAG HYDROX/AL HYDROX/SIMETH SUSP 30 ML UDCUP ONE ×2 (06:06→16:18)
[2018-02-08] MEDS ORDERED: FENTANYL CITRATE INJ/PF 100 MCG/2 ML AMPUL ONE ×2 (11:20→20:39)
[2018-02-08] MEDS ORDERED: PHENYLEPHRINE HCL INJ/PF 10 MG/1 ML SDV ONE (11:20)
[2018-02-08] MEDS ORDERED: EPHEDRINE SULFATE INJ 50 MG/1 ML AMPULE ONE (11:20)
[2018-02-08] MEDS ORDERED: BUPIVACAINE HCL 0.5 % INJ/PF 30 ML SDV ONE (11:21)
[2018-02-08] MEDS ORDERED: FENTANYL/BUPIVACAINE/NS/PF 300 MCG/150 ML RTUINJ EPI ONE (11:21)
[2018-02-08 11:22] LABS: ABSOLUTE BASOPHILS # (AUTO) 0.1 10^3/uL (0.0-0.2); ABSOLUTE EOSINOPHILS # (AUTO) 0.1 10^3/uL (0.0-0.6); ABSOLUTE LYMPHOCYTES (AUTO) 1.8 10^3/uL (0.5-4.7); ABSOLUTE NEUT (AUTO) 7.3 10^3/uL (1.7-8.2); BASOPHILS % (AUTO) 0.8 % (0-2); EOSINOPHILS % (AUTO) 0.6 % (0-6); HEMATOCRIT 27.9 % (36.0-47.0); HEMOGLOBIN 9.4 g/dL (12.0-15.5); LYMPHOCYTES % (AUTO) 17.8 % (13-45); MEAN CORPUSCULAR HEMOGLOBIN 25.8 pg (27.0-33.4); MEAN CORPUSCULAR HGB CONC 33.7 g/dL (32.0-36.0); MEAN CORPUSCULAR VOLUME 77 fl (80-97); MONOCYTES % (AUTO) 9.3 % (3-13); PLATELET COUNT 255 10^3/uL (150-450); RED BLOOD COUNT 3.63 10^6/uL (3.72-5.28); RED CELL DISTRIBUTION WIDTH 14.2 % (11.5-14.0); SEGMENTED NEUTROPHILS % (AUTO) 71.5 % (42-78); TOTAL CELLS COUNTED % (AUTO) 100 %; WHITE BLOOD COUNT 10.2 10^3/uL (4.0-10.5)
[2018-02-08] MEDS ORDERED: TERBUTALINE SULFATE INJ/PF 1 MG/1 ML SDV ONE (14:27)
--- NOTE | 2018-02-08 16:47 | L&D Progress Notes ---
PROGRESS NOTES Datetime Report Generated by YASMIN: 02/08/2018 16:46 PROGRESS NOTE Impression: Reassuring Heart Rate Impression: Non-reassuring Heart Rate; Eclampsia - Mild Impression: Normal Progression of Labor; Reassuring Heart Rate; Eclampsia - Mild Procedures: Sterile Vag Exam Procedures: Sterile Vag Exam Procedures: Sterile Vag Exam; Epidural Placement Procedures- Other: Pitocin restarted to augment labor Procedures- Other: IUPC/ FSE placed Plan: Continue Present Management; Augmentation Plan: Continue Present Management; Induction; Anticipate Vaginal Delivery Plan Other: Pitocin off, .25 mg SQ Terbutaline given. Vital Signs : Reviewed; Within Normal Limits Vital Signs : Reviewed Vital Signs : Reviewed; Within Normal Limits Comment: Pitocin restarted, pt remains comfortable. VE pt feels 6-7 / 90/-3 and can push baby out of the pelvis with pt laying on her back. Plan to continue with Pitocin and change position to high fowlers. Comment: Variable decels and difficulty monitoring contraction pattern. In room to place IUPC/ FSE. VE: stretchy 8 cm during a contraction, Pitocin off due to noted tachysystole, then FHR deceleration occured. Position changes made, O2 applied, IVF bolus infusing. Dr Suarez notified of FHR tracing. Will allow for resuscitation and leave Pitocin off for now. FHR resolved to normal tracing once contractions spaced apart. Comment: pt comfortable with the epidural. Pitocin infusing, Denies headache. Position changes encourged. Anticipate . Dr Suarez is the attending MD VAGINAL EXAM Dilatation: 7 Dilatation: 8 Dilatation: 6 Dilatation: 2 Effacement: 90 Effacement: 90 Effacement: 90 Effacement: 50 Station: -3 Station: -2 Station: -2 Station: -3 Contractions: 1-2 min Contractions: irregular MEMBRANES Membranes: Ruptured Membranes: Ruptured Membranes: Ruptured Membranes: Intact Amniotic Fluid Color: Clear Amniotic Fluid Color: Clear FETUS A FHR - Baseline: 125 FHR - Baseline: 100 FHR - Baseline: 130 Monitoring: Internal Scalp Electrode Monitoring: Internal Scalp Electrode Monitoring: External US Variability: Moderate 6-25bpm Variability: Moderate 6-25bpm Accelerations: 15X15 Accelerations: Prolonged Decelerations: None Decelerations: Variable Decelerations: Variable FHR Category: Category I FHR Category: Category II FHR Comments: Position changes made due to FHR deceleration, O2 applied, IVF bolus infusing SIGNATURE SIGNATURE: [id number];[id number];[id number] SIGNATURE: [id number];[id number] SIGNATURE: [id number] Assignment: Parrish Suarez MD Signature: with User ID: [email or web address] : with User ID: [email or web address]
--- NOTE | 2018-02-08 17:21 | L&D Progress Notes ---
PROGRESS NOTES Datetime Report Generated by CPN: 02/08/2018 17:21 PROGRESS NOTE Impression: Arrest of Dilatation/Descent Comment: No change in dilation since 2:30 pm. She has a narrow pelvis anteriorly and the head has caput and is still ballotable. They are ready to proceed with a c section. Diagnosis is arrest of dilation. FETUS C SIGNATURE: [id number];[id number];10,[id number] Signature: with User ID: [email or web address]
[2018-02-08] MEDS ORDERED: CITRIC ACID/SODIUM CITRATE ORAL SOLN 15 ML UDCUP ONE (17:23)
[2018-02-08] MEDS ORDERED: LIDOCAINE 2%/EPINEPHRINE INJ 20 ML VIAL ONE (17:23)
[2018-02-08] MEDS ORDERED: METOCLOPRAMIDE HCL INJ/PF 10 MG/2 ML SDV ONE (17:23)
[2018-02-08] MEDS ORDERED: ACETAMINOPHEN 1,000 MG/100 ML RTUPB IV PRN (17:24)
[2018-02-08] MEDS ORDERED: DIPH/PERTUSS(ACELL)/TETANUS VAC/PF 0.5 ML SYR (>=10YO) IM PRN (17:24)
[2018-02-08] MEDS ORDERED: ACETAMINOPHEN 325 MG TABLET PO PRN (17:24)
[2018-02-08] MEDS ORDERED: HYDROMORPHONE HCL INJ/PF 2 MG/ML AMPULE IV PRN (17:24)
[2018-02-08] MEDS ORDERED: PROMETHAZINE HCL INJ 25 MG/1 ML VIAL IV PRN (17:24)
[2018-02-08] MEDS ORDERED: SIMETHICONE 80 MG TAB.CHEW PO PRN (17:24)
[2018-02-08] MEDS ORDERED: SODIUM BICARBONATE 8.4% INJ 50 MEQ/50 ML DISP.SYRIN ONE ×2 (17:24→17:26)
[2018-02-08] MEDS ORDERED: OXYCODONE-ACETAMINOPHEN 5-325 MG TABLET PO PRN (17:24)
[2018-02-08] MEDS ORDERED: FAMOTIDINE INJ/PF 20 MG/2 ML SDV IV ONE (17:24)
[2018-02-08] MEDS ORDERED: RINGERS SOLUTION,LACTATED 1,000 ML IV PRN (17:24)
[2018-02-08] MEDS ORDERED: CEFAZOLIN 2 GM/D5W RTU 2 GM/50 ML RTUPB IV ONE (17:24)
[2018-02-08] MEDS ORDERED: MEASLES,MUMPS&RUBELLA VACC/PF 0.5 ML VIAL SUBCUT PRN (17:24)
[2018-02-08] MEDS ORDERED: ONDANSETRON HCL INJ/PF 4 MG/2 ML SDV ONE (17:50)
[2018-02-08] MEDS ORDERED: OXYTOCIN 10 UNIT/ML VIAL ONE (17:50)
[2018-02-08] MEDS ORDERED: MIDAZOLAM 2 MG/2 ML INJ ONE (17:50)
[2018-02-08] MEDS ORDERED: CEFAZOLIN 1 GM/D5W RTU 50 ML IV SCH (18:00)
[2018-02-08] MEDS ORDERED: PROPOFOL INJ 200 MG/20 ML VIAL IV ONE (18:08)
[2018-02-08] MEDS ORDERED: MORPHINE SULFATE 10 MG/ML INJ ONE (18:08)
[2018-02-08] MEDS ORDERED: ACETAMINOPHEN 1,000 MG/100 ML RTUPB IV ONE (18:09)
--- NOTE | 2018-02-08 18:39 | Operative Report ---
Operative Report DATE OF SURGERY: 02/08/18 PREOPERATIVE DIAGNOSIS: Arrest of dilatation, persistent occiput posterior POSTOPERATIVE DIAGNOSIS: Same OPERATION: Primary via low transverse uterine incision SURGEON: ANTONIO GOOD ANESTHESIA: Epidural TISSUE REMOVED OR ALTERED: Placenta COMPLICATIONS: None ESTIMATED BLOOD LOSS: 250 cc INTRAOPERATIVE FINDINGS: Viable female infant directly OP PROCEDURE: Patient was taken to the OR and placed in supine position after her spinal anesthesia. She is prepared and draped in sterile fashion. Carter was placed for drainage of the bladder. Low transverse incision was made and carried down the level of the fascia. The fascial incision was made with knife and extended bilaterally with curved Gonzalez scissors. The fascia was off the rectus muscles using sharp and blunt dissection. The rectus muscles are in the midline. The peritoneum was entered without incident. Bladder blade was placed in uterine segment was identified. A low transverse incision was made creating a bladder flap. Bladder blade was placed low transverse uterine incision was made with the csafe knife and extended with fingertips. The baby was delivered with some fundal pressure. Mouth and nose were suctioned free. The cord is doubly clamped and cut. Baby is passed off to the inside sales director in attendance. The placenta was manually extracted with trailing membranes. Uterine contents wiped free. Uterus was closed with a running locking layer of 0 chromic suture using the second layer to imbricate the first completing a double layer closure of the uterus. The pelvis was irrigated and suctioned free of fluid the uterus was replaced in the abdomen. The abdominal wall peritoneum was closed with running 2-0 chromic stitch. Fascia was closed with a running 0 Vicryl in 2 segments. Claudia's layer was brought together with 0 plain gut stitch and the skin was closed with running subcuticular 4-0 undyed Vicryl stitch. The wound was dressed mother and baby did well.
[2018-02-08] MEDS: KETOROLAC TROMETHAMINE INJ/PF 30 MG/1 ML SDV IV SCH (21:00)
[2018-02-09] MEDS ORDERED: CEFAZOLIN 2 GM/D5W RTU 2 GM/50 ML RTUPB IV SCH
[2018-02-09] MEDS: KETOROLAC TROMETHAMINE INJ/PF 30 MG/1 ML SDV IV SCH ×2 (01:48→09:33)
[2018-02-09] MEDS: DOCUSATE SODIUM 100 MG CAPSULE PO SCH ×3 (01:53→17:21)
[2018-02-09] MEDS: OXYCODONE-ACETAMINOPHEN 5-325 MG TABLET PO PRN ×5 (02:57→22:32)
[2018-02-09 06:06] LABS: HEMATOCRIT 23.8 % (36.0-47.0); HEMOGLOBIN 8.2 g/dL (12.0-15.5); MEAN CORPUSCULAR HEMOGLOBIN 26.1 pg (27.0-33.4); MEAN CORPUSCULAR HGB CONC 34.3 g/dL (32.0-36.0); MEAN CORPUSCULAR VOLUME 76 fl (80-97); PLATELET COUNT 212 10^3/uL (150-450); RED BLOOD COUNT 3.13 10^6/uL (3.72-5.28); RED CELL DISTRIBUTION WIDTH 14.2 % (11.5-14.0); WHITE BLOOD COUNT 10.9 10^3/uL (4.0-10.5)
[2018-02-09] MEDS: PRENATAL VITAMIN W DHA CAPSULE PO SCH (09:46)
[2018-02-09] MEDS: IBUPROFEN 800 MG TABLET PO SCH ×2 (17:22→23:57)
--- NOTE | 2018-02-09 17:58 | PDOC PROGRESS REPORT ---
Subjective-OB Progress Note for:: 02/09/18 Subjective: 22yo G3 now P1 s/p primary ppd1. Ambulating, and voiding without difficulty. Reports no bowel movement yet but passing gas. Denies any concerns at this time Physical Exam (OB) Vital Signs: Temp Pulse Resp BP Pulse Ox 98.3 F 92 16 123/74 98 02/09/18 07:53 02/09/18 07:53 02/09/18 07:53 02/09/18 07:53 02/09/18 07:53 Intake & Output 02/08/18 02/09/18 02/10/18 06:59 06:59 06:59 Intake Total 1000 2720 Output Total 200 Balance 1000 2720 -200 Weight 109.8 kg - General General Appearance: Appears well In distress: None - PIH/Pre-Eclampsia DTR's: 2 + Clonus: Negative Headache: Absent Epigastric Pain: No Visual Changes: No - Dressing Removed: No Incision: Dressing, Draining Closure Type: Surgical Glue - Lochia Lochia Amount: Scant < 10 ml Lochia Color: Rubra/Red - Abdomen Description: Tender, Soft Hernia Present: No Fundal Description: Firm, Midline Fundal Height: u/u - u/2 - Respiratory Respiratory Status: No respiratory distress - Extremities Upper extremity: Normal inspection Lower extremities: Normal inspection - Neurological Cognition: Normal Orientation: AAOx4 - Psychological Associated symptoms: Normal affect, Normal mood Objective-Diagnostic Laboratory: 02/09/18 05:55 02/07/18 21:07 02/09/18 05:55 WBC 10.9 H RBC 3.13 L Hgb 8.2 L Hct 23.8 L MCV 76 L MCH 26.1 L MCHC 34.3 RDW 14.2 H Plt Count 212 Assessment and Plan(PN) - Assessment and Plan (1) Status post primary low transverse section Is this a current diagnosis for this admission?: Yes Plan: routine pp care (2) Term Is this a current diagnosis for this admission?: Yes Plan: delivered (3) Hypertension affecting Qualifiers: Trimester: unspecified trimester Qualified Code(s): O16.9 - Unspecified maternal hypertension, unspecified trimester Is this a current diagnosis for this admission?: Yes Plan: continue to monitor for s/s of pre-e (4) Failed induction, delivered, current hospitalization Is this a current diagnosis for this admission?: Yes Plan: delivered - Time Spent with Patient Time with patient: Less than 15 minutes Medications reviewed and adjusted accordingly: Yes - Disposition Anticipated Discharge: Home Within: within 24 hours
--- NOTE | 2018-02-09 22:24 | RADIOLOGY REPORT (SQ) ---
Left knee four view on 02/09/2018 at 10:06 PM Clinical indications: Left knee pain after fall COMPARISON: None FINDINGS: No joint effusion is noted. There are no fractures. Visualized joints are well aligned. No bony abnormality is noted. IMPRESSION: No acute bony abnormality.
[2018-02-10] MEDS: OXYCODONE-ACETAMINOPHEN 5-325 MG TABLET PO PRN (04:51)
[2018-02-10] MEDS: IBUPROFEN 800 MG TABLET PO SCH (06:50)
--- NOTE | 2018-02-10 09:50 | PDOC PROGRESS REPORT ---
Subjective-OB Progress Note for:: 02/10/18 Subjective: Back from MRI, feeling good, pain under control, bottle feeding Physical Exam (OB) Vital Signs: Temp Pulse Resp BP Pulse Ox 97.8 F 81 18 152/93 H 98 02/10/18 08:01 02/10/18 08:01 02/10/18 08:01 02/10/18 08:01 02/10/18 08:01 Intake & Output 02/09/18 02/10/18 02/11/18 06:59 06:59 06:59 Intake Total 2720 Output Total 200 Balance 2720 -200 - PIH/Pre-Eclampsia DTR's: 2 + Clonus: Negative Headache: Absent Epigastric Pain: No Visual Changes: No - Dressing Removed: No Incision: Dressing Closure Type: Sutures - Lochia Lochia Amount: Scant < 10 ml Lochia Color: Rubra/Red - Abdomen Description: Tender, Soft, Round Hernia Present: No Fundal Description: Firm, Midline Fundal Height: u/u - u/2 Objective-Diagnostic Laboratory: 02/09/18 05:55 02/07/18 21:07 Assessment and Plan(PN) - Assessment and Plan (1) Term Is this a current diagnosis for this admission?: Yes (2) Hypertension affecting Qualifiers: Trimester: unspecified trimester Qualified Code(s): O16.9 - Unspecified maternal hypertension, unspecified trimester Is this a current diagnosis for this admission?: Yes (3) Status post primary low transverse section Is this a current diagnosis for this admission?: Yes (4) Failed induction, delivered, current hospitalization Is this a current diagnosis for this admission?: Yes - Time Spent with Patient Time with patient: Less than 15 minutes Medications reviewed and adjusted accordingly: Yes - Disposition Anticipated Discharge: Home Within: Other - home today
--- NOTE | 2018-02-10 09:56 | PDOC DISCHARGE SUMMARY ---
Final Diagnosis Discharge Date: 02/10/18 - Final Diagnosis (1) Term Is this a current diagnosis for this admission?: Yes (2) Hypertension affecting Is this a current diagnosis for this admission?: Yes (3) Status post primary low transverse section Is this a current diagnosis for this admission?: Yes (4) Failed induction, delivered, current hospitalization Is this a current diagnosis for this admission?: Yes Discharge Data - Discharge Medication Prescriptions: Oxycodone HCl/Acetaminophen [Percocet 5-325 mg Tablet] 1 tab PO Q4HP PRN #30 tablet PRN Reason: Ibuprofen [Motrin 800 mg Tablet] 800 mg PO Q6 #60 tablet Home Medications: Vit Calc,Iron,Folic [ Vitamins] 1 each PO DAILY 02/02/18 Ranitidine HCl [Zantac 150 mg Tablet] 1 tab PO BID 02/05/18 Ibuprofen [Motrin 800 mg Tablet] 800 mg PO Q6 #60 tablet 02/10/18 Oxycodone HCl/Acetaminophen [Percocet 5-325 mg Tablet] 1 tab PO Q4HP PRN #30 tablet 02/10/18 Reason(s) for Admission: Induction of Labor, PIH Admission Note: Cervidil, Pitocin Procedures: NST, Ultrasound Intrapartum Procedure(s): : Low Cervical, Transverse - Diagnosis Test Laboratory: Temp Pulse Resp BP Pulse Ox 97.8 F 81 18 152/93 H 98 02/10/18 08:01 02/10/18 08:01 02/10/18 08:01 02/10/18 08:01 02/10/18 08:01 02/07/18 02/07/18 02/08/18 20:20 21:07 11:11 RBC 3.87 3.63 L Hgb 9.8 L 9.4 L Hct 29.7 L 27.9 L Urine Opiates Screen NEGATIVE 02/09/18 05:55 RBC 3.13 L Hgb 8.2 L Hct 23.8 L Urine Opiates Screen - Discharge information/Instructions Discharge Activity: Activity As Tolerated, No Lifting Over 10 Pounds, No Lifting /Push/Pulling, Pelvic Rest Discharge Diet: As Tolerated, Regular Disposition: HOME, SELF-CARE Follow up with: [facility] in: 1, Weeks
--- NOTE | 2018-02-10 10:36 | RADIOLOGY REPORT (SQ) ---
EXAM DESCRIPTION: MRI LT LOWER JOINT WITHOUT COMPLETED DATE/TIME: 02/10/2018 9:53 am REASON FOR STUDY: pt with left knee dislocate. eval for injury COMPARISON: Radiographs 02/09/2018 TECHNIQUE: Leftknee images acquired and stored on PACS. Multiplanar images include fat sensitive se quences as T1, water sensitive sequences as FST2 or STIR, cartilage sensitive sequences as FSPD, and gradient echo sequences. LIMITATIONS: None. FINDINGS: JOINT AND BURSAE: Fairly small joint effusion. BONE CORTEX AND MARROW: No displaced fracture or bone lesion. Contusion throughout the lateral femor al condyle anteriorly. ACL: Intact. PCL: Intact. MCL: Intact. LCL: Intact. MEDIAL MENISCUS: No tears. No abnormal signal. LATERAL MENISCUS: No tears. No abnormal signal. MEDIAL COMPARTMENT: No focal chondral lesions. LATERAL COMPARTMENT: No focal chondral lesions. PATELLA: Normal location without subluxation or dislocation. No patellar fracture or edema. Preserv ed chondral surfaces. EXTENSOR MECHANISM: Intact. Mild edema in the suprapatellar fat pad. SOFT TISSUES: Generalized subcutaneous edema anteriorly and posteriorly. No deep soft tissue edema o r aneurysm. OTHER: No other significant finding. IMPRESSION: 1. Contusion edema in the lateral femoral condyle. Of note, there is no patellar contus ion or fracture or persistent subluxation. This could still be related to recent transient patellar dislocation, however. ACL looks intact. 2. No meniscus tear. No focal chondral lesions. 3. Extens rosi soft tissue edema. TECHNICAL DOCUMENTATION: JOB ID: [id number] [employer]- All Rights Reserved Reading location - IP/workstation name: [email or web address]
[2018-02-10] MEDS: PRENATAL VITAMIN W DHA CAPSULE PO SCH (10:39)
[2018-02-10] MEDS: DOCUSATE SODIUM 100 MG CAPSULE PO SCH (10:39)
[2018-02-10 12:12] VITALS: BP 152/92
--- NOTE | 2018-02-10 15:26 | Delivery Summary ---
Del Sum A-C Datetime Report Generated by CPN: 02/10/2018 15:26 DELIVERY PERSONNEL DELIVERY PERSONNEL: [id number] Delivery Doctor:: Parrish Suarez MD Delivery Doctor:: Parrish Suarez MD Anesthesiologist:: Lila Bell MD Anesthesiologist:: Lila Bell MD CHOIR DIRECTOR:: William Bess CRNA CHOIR DIRECTOR:: William Bess CRNA Labor and Delivery Nurse:: Eliane García RNedge plugger Nurse:: Martinez Crabtree RN Overcoiler:: Eliane García RN Neonatal Nurse Practitioner:: JORDAN Fernandes Equipment Driver/STUDENT DEVELOPMENT COORDINATOR: Abbi Marsh CLOSING MACHINE OPERATOR Equipment Driver/STUDENT DEVELOPMENT COORDINATOR: Abbi Marsh CLOSING MACHINE OPERATOR Equipment Driver/STUDENT DEVELOPMENT COORDINATOR: ST Benny Equipment Driver/STUDENT DEVELOPMENT COORDINATOR: ST Benny MATERNAL INFORMATION Delivery Anesthesia: Epidural Medications After Delivery: Pitocin Bolus-Please Comment Meds After Delivery Comment: Pitocin 20 units bolusing per order Maternal Complications: None LABOR SUMMARY EDC: 02/05/2018 00:00 No. Babies in Womb: 1 Attempted: No Labor Anesthesia: Epidural LABOR INFORMATION Reason for Induction: Pre-Eclampsia Cervical Ripening Agents: Carter Balloon Cervical Ripening Agents: Cervidil Cervical Ripening Agents: Cervidil Oxytocin: Induction Group B Beta Strep: NEGATIVE Antibiotics # of Doses: 1 Antibiotics Time of Last Dose: 1736 Name of Antibiotic Given: Ancef 2 g Steroids Given: None Reason Steroids Not Administered: Not Applicable MEMBRANES Membranes Rupture Method: Artificial Rupture of Membranes: 02/08/2018 08:29 Length of Rupture (hr): 9.53 Amniotic Fluid Color: Clear Amniotic Fluid Amount: Small Amniotic Fluid Odor: Normal STAGES OF LABOR Stage 3 hr: 0 Stage 3 min: 0 VAGINAL DELIVERY Episiotomy: None Laceration #1: None Laceration Extension #1: N/A Laceration Repair: Not Applicable Sponge Count Correct: N/A Sharps Count Correct: N/A CSECTION DELIVERY Primary Indication: Arrest of Descent Secondary Indication: N/A CSection Urgency: Non-Scheduled CSection Incidence: Primary Labor: Labor Elective: N/A CSection Incision: Lower Uterine Transverse BABY A INFORMATION Delivery Date/Time: 02/08/2018 18:01 Method of Delivery: Born in Route : No : N/A Forceps: N/A Vacuum Extraction: N/A Shoulder Dystocia : No PRESENTATION/POSITION BABY A Presentation: Cephalic Presentation: Cephalic Cephalic Presentation: Vertex Vertex Position: OP Breech Presentation: N/A PLACENTA INFORMATION BABY A Placenta Delivery Time : 02/08/2018 18:01 Placenta Method of Delivery: Manual Removal Placenta Status: Delivered SCORES BABY A Heart Rate 1 min: >100 bpm Resp Effort 1 min: Good Cry Reflex Irritability 1 min: Cough or Sneeze or Pulls Away Muscle Tone 1 min: Active Motion Color 1 min: Body [place], Extremities Blue Resuscitation Effort 1 min: Tactile Stimulation SCORE 1 MIN: 9 Heart Rate 5 min: >100 bpm Resp Effort 5 min: Good Cry Reflex Irritability 5 min: Cough or Sneeze or Pulls Away Muscle Tone 5 min: Active Motion Color 5 min: Completely [place] Resuscitation Effort 5 min: Tactile Stimulation SCORE 5 MIN: 10 INFANT INFORMATION BABY A Gestational Age at Delivery: 40.3 Gestational Status: Full Term- 39- 40.6 Weeks Infant Outcome : Liveborn Infant Condition : Stable Infant Sex: Female IDENTIFICATION BABY A Verification Date/Time: 02/08/2018 18:05 ID Band Number: [id number] Mother's Name Verified: Yes RN Verifying Infant: Bertha Crabtree RN and Johnna Butler RN WEIGHT/LENGTH BABY A Birthweight (gm): 3545 Infant Weight (lb): 7 Infant Weight (oz): 13 Length (in): 20.00 Length (cm): 50.80 CORD INFORMATION BABY A No. Cord Vessels: 3 Nuchal Cord : Around Neck x1, Loose Cord Blood Taken: Yes-For Storage (Mom's Blood type +) Infant Suction: None ASSESSMENT BABY A Complications: None Skin to Skin: Yes BABY B INFORMATION : N/A
== END 2018-02-10 12:44 | disposition home or self-care (01) | DRG 788 ==
LOC: LR 20:12 → 2S 02-08 20:48
PROVIDERS: ADMIT Obstetrics & Gynecology; ATTEND Obstetrics & Gynecology
PROC: 10D00Z1 Extraction of Products of Conception, Low, Open Approach (ICD-10-PCS; principal; 2018-02-08)
DX: O64.0XX0 Obstructed labor due to incomplete rotation of fetal head, not applicable or unspecified (principal); O48.0 Post-term pregnancy; O62.0 Primary inadequate contractions; O11.4 Pre-existing hypertension with pre-eclampsia, complicating childbirth; O69.81X0 Labor and delivery complicated by cord around neck, without compression, not applicable or unspecified; Z3A.40 40 weeks gestation of pregnancy; Z37.0 Single live birth
CPT/HCPCS: 01961; 36415; 80053; 80307; 80345; 80349; 81001; 82570; 83615; 84156; 84550; 85025; 85027; 86592; 86850; 86900; 86901; 90471; 90686; 94760; 94799; G0008; G0480; J0131; J0690; J1170; J1885; J2250; J2270; J2300; J2370; J2405; J2550; J2590; J2704; J2765; J3010; J3105; J3490; L1830; S0028

== ENCOUNTER 2019-10-23 08:31 | Emergency (ER) | payer SELFPAY ==
[2019-10-23 09:02] VITALS: BP 137/86
[2019-10-23] MEDS ORDERED: ONDANSETRON HCL INJ/PF 4 MG/2 ML SDV IV ONE (09:04)
[2019-10-23] MEDS ORDERED: NORMAL SALINE 1000 ML 1,000 ML IV ONE (09:04)
--- NOTE | 2019-10-23 09:15 | ER Document Report ---
ED GI/ - General Chief Complaint: Nausea/Vomiting Stated Complaint: VOMITING Time Seen by Provider: 10/23/19 08:42 Notes: CHIEF COMPLAINT: Abdominal pain vomiting diarrhea HPI: 24-year-old female presenting with 1 day of abdominal pain in the epigastric area with greater than 20 episodes of vomiting and diarrhea. No other family members are ill no recent travel. No new foods. Began with the abdominal pain progressed to the vomiting and diarrhea. ROS: See HPI - all other systems were reviewed and are otherwise negative Constitutional: no fever Eyes: no drainage, no blurred vision ENT: no runny nose, no sore throat Cardiovascular: no chest pain Resp: no SOB, no cough GI: Positive vomiting, positive diarrhea, positive abdominal pain : no dysuria Integumentary: no rash Allergy: no hives Musculoskeletal: no extremity pain or swelling Neurological: no numbness/tingling, no weakness MEDICATIONS: I agree with the patient medications as charted by the RN. ALLERGIES: I agree with the allergies as charted by the RN. PAST MEDICAL HISTORY/PAST SURGICAL HISTORY: Reviewed and agree as charted by RN. SOCIAL HISTORY: Reviewed and agree as charted by RN. FAMILY HISTORY: No significant familial comorbid conditions directly related to patient complaint EXAM: Reviewed vital signs as charted by RN. CONSTITUTIONAL: Alert and oriented and responds appropriately to questions. Well-appearing; well-nourished, actively vomiting in the room HEAD: Normocephalic; atraumatic EYES: PERRL; Conjunctivae clear, sclerae non-icteric ENT: normal nose; no rhinorrhea; moist mucous membranes; pharynx without lesions noted, no uvula edema or deviation, no tonsillar hypertrophy, phonation normal NECK: Supple without meningismus; non-tender; no cervical lymphadenopathy, no masses CARD: RRR; no murmurs, no clicks, no rubs, no gallops; symmetric distal pulses RESP: Normal chest excursion without splinting or tachypnea; breath sounds clear and equal bilaterally; no wheezes, no rhonchi, no rales, pulse oximetry 97% on room air not hypoxic ABD/GI: Normal bowel sounds; non-distended; soft, mild to moderate tenderness in the epigastric region on palpation, no rebound, no guarding; no palpable organomegaly or masses. BACK: The back appears normal and is non-tender to palpation, there is no CVA tenderness EXT: Normal ROM in all joints; non-tender to palpation; no cyanosis, no effusions, no edema SKIN: Normal color for age and race; warm; dry; good turgor; no acute lesions noted NEURO: Moves all extremities equally; Motor and sensory function intact PSYCH: The patient's mood and manner are appropriate. Grooming and personal h ygiene are appropriate. MDM: 24-year-old female with nausea vomiting diarrhea with upper abdominal pain for 24 hours. May be a viral etiology but she does have moderate reproducible pain, will obtain screening labs, imaging to evaluate for colitis TRAVEL OUTSIDE OF THE [place] IN LAST 30 DAYS: No - Related Data Allergies/Adverse Reactions: latex Allergy (Verified 02/07/18 20:23) Past Medical History - Social History Smoking Status: Current Every Day Smoker Chew tobacco use (# tins/day): No Frequency of alcohol use: 1 to 2 a week Drug Abuse: Marijuana Family History: DM, Hyperlipidemia, Hypertension Patient has homicidal ideation: No - Past Medical History Cardiac Medical History: Denies: Hx Atrial Fibrillation, Hx Congestive Heart Failure, Hx Heart Attack, Hx Hypercholesterolemia, Hx Hypertension Pulmonary Medical History: Denies: Hx Asthma, Hx Bronchitis, Hx COPD, Hx Pneumonia, Hx Tuberculosis Neurological Medical History: Denies: Hx Migraine, Hx Seizures Endocrine Medical History: Denies: Hx Diabetes Mellitus Type 1, Hx Diabetes Mellitus Type 2 Renal/ Medical History: Denies: Hx End Stage Renal Disease, Hx Kidney Stones, Hx Peritoneal Dialysis GI Medical History: Denies: Hx Gastroesophageal Reflux Disease, Hx Hiatal Hernia, Hx Ulcer Musculoskeletal Medical History: Denies Hx Arthritis, Reports Hx Musculoskeletal Trauma - fx arm Psychiatric Medical History: Denies: Hx Attention Deficit Hyperactivity Disorder, Hx Bipolar Disorder, Hx Depression, Hx Schizophrenia Traumatic Medical History: Reports: Hx Fractures - arm Past Surgical History: Reports: Hx Tubal Ligation. Denies: Hx Abdominal Surgery, Hx Appendectomy, Hx Bowel Surgery, Hx Breast Surgery, Hx Cardiac Catheterization, Hx Cardiac Surgery, Hx Section, Hx Cholecystectomy, Hx Genitourinary Surgery, Hx Gynecologic Surgery, Hx Hysterectomy, Hx Kidney (Renal Surgery), Hx Mastectomy, Hx Neurologic Surgery, Hx Nose Surgery, Hx Open Heart Surgery, Hx Oral Surgery, Hx Orthopedic Surgery, Hx Pancreatic Surgery, Hx Pituitary Surgery, Hx Rectal Surgery, Hx Thyroid Surgery, Hx Tonsillectomy, Hx Urinary Tract Surgery, Hx Vascular Surgery - Immunizations Immunizations up to date: No Hx Diphtheria, Pertussis, Tetanus Vaccination: No Physical Exam - Vital signs Vitals: Temp 97.5 F 10/23/19 08:31 Course - Re-evaluation Re-evalutation: 10/23/19 10:53 Was notified by nursing that patient had eloped. Patient apparently asked to have her IV out and nursing complied. Patient then stated that her ride was here and it was her only way home and she walked out. Nursing informed me after the patient had a left. I did not have a chance to speak with the patient about her results or discuss treatment options. I did not have a chance to discuss risks of leaving AGAINST MEDICAL ADVICE with the patient. 10/23/19 10:[address] imaging has not yet resulted prior to her walking - Vital Signs Vital signs: Temp Pulse Resp BP Pulse Ox 97.7 F 65 19 137/86 H 98 10/23/19 08:41 10/23/19 08:41 10/23/19 08:41 10/23/19 08:41 10/23/19 08:41 - Laboratory Result Diagrams: 10/23/19 09:14 10/23/19 09:14 Laboratory results interpreted by me: 10/23/19 10/23/19 10/23/19 08:45 09:14 09:14 RDW 14.8 H Seg Neutrophils % 81.6 H Total Protein 8.8 H Albumin 5.2 H Urine Protein 30 H Urine Blood SMALL H Discharge - Discharge Clinical Impression: Abdominal pain, acute, epigastric, Left against medical advice, Nausea vomiting and diarrhea Condition: Fair Disposition: AGAINST MEDICAL ADVICE
[2019-10-23 09:24] LABS: APPEARANCE,URINE SLIGHTLY-CLOUDY; BILIRUBIN,URINE NEGATIVE (NEGATIVE); COLOR,URINE YELLOW; GLUCOSE, URINE NEGATIVE (NEGATIVE); KETONES,URINE NEGATIVE (NEGATIVE); LEUKOCYTE ESTERASE,URINE NEGATIVE (NEGATIVE); NITRITE,URINE NEGATIVE (NEGATIVE); PROTEIN,URINE 30 mg/dL (NEGATIVE); URINE SPECIFIC GRAVITY 1.025; UROBILINOGEN,URINE NEGATIVE mg/dL (<2.0)
[2019-10-23 09:48] LABS: ABSOLUTE BASOPHILS # (AUTO) 0.1 10^3/uL (0.0-0.2); ABSOLUTE LYMPHOCYTES (AUTO) 1.4 10^3/uL (0.5-4.7); ABSOLUTE MONOCYTES (AUTO) 0.3 10^3/uL (0.1-1.4); ABSOLUTE NEUT (AUTO) 7.9 10^3/uL (1.7-8.2); BASOPHILS % (AUTO) 0.6 % (0-2); EOSINOPHILS % (AUTO) 0.1 % (0-6); HEMOGLOBIN 14.9 g/dL (12.0-15.5); LYMPHOCYTES % (AUTO) 14.2 % (13-45); MEAN CORPUSCULAR HEMOGLOBIN 30.2 pg (27.0-33.4); MEAN CORPUSCULAR HGB CONC 33.8 g/dL (32.0-36.0); MEAN CORPUSCULAR VOLUME 89 fl (80-97); MONOCYTES % (AUTO) 3.5 % (3-13); PLATELET COUNT 318 10^3/uL (150-450); RED BLOOD COUNT 4.92 10^6/uL (3.72-5.28); RED CELL DISTRIBUTION WIDTH 14.8 % (11.5-14.0); SEGMENTED NEUTROPHILS % (AUTO) 81.6 % (42-78); TOTAL CELLS COUNTED % (AUTO) 100 %; WHITE BLOOD COUNT 9.6 10^3/uL (4.0-10.5)
[2019-10-23] MEDS ORDERED: PROCHLORPERAZINE EDISYLATE INJ 10 MG/2 ML VIAL IV ONE (10:03)
[2019-10-23 10:09] LABS: ALBUMIN 5.2 g/dL (3.5-5.0); ALKALINE PHOSPHATASE 59 U/L (38-126); ANION GAP 10 (5-19); ASPARTATE AMINO TRANSFERASE 17 U/L (14-36); BILIRUBIN,TOTAL 0.6 mg/dL (0.2-1.3); BLOOD UREA NITROGEN 18 mg/dL (7-20); CARBON DIOXIDE 25 mmol/L (22-30); CHLORIDE 103 mmol/L (98-107); GLUCOSE 101 mg/dL (75-110); POTASSIUM 4.3 mmol/L (3.6-5.0); TOTAL PROTEIN 8.8 g/dL (6.3-8.2)
--- NOTE | 2019-10-23 11:16 | RADIOLOGY REPORT (SQ) ---
EXAM DESCRIPTION: CT ABD/PELVIS WITH IV ONLY IMAGES COMPLETED DATE/TIME: 10/23/2019 10:36 am REASON FOR STUDY: upper abd pain diarrhea COMPARISON: None. TECHNIQUE: CT scan of the abdomen and pelvis performed using helical scanning technique with dynamic intravenous contrast injection. No oral contrast. Images reviewed with lung, soft tissue, and bone windows. Reconstructed coronal and sagittal MPR images reviewed. Delayed images for evaluation of the urinary system also acquired. All images stored on PACS. All CT scanners at this facility use dose modulation, iterative reconstruction, and/or weight based d osing when appropriate to reduce radiation dose to as low as reasonably achievable (ALARA). [facility]: Dose Right [facility]: CareDose [facility]: Dose Right [facility]: Teradose 4D [facility]: Glycobia CONTRAST TYPE AND DOSE: 94 mL of IV Omnipaque 350- low osmolar. RENAL FUNCTION: Creatinine 0.7 RADIATION DOSE: CT Rad equipment meets quality standard of care and radiation dose reduction techniq ues were employed. CTDIvol: 9.6 - 13.4 mGy. DLP: 1286 mGy-cm.. LIMITATIONS: None. FINDINGS: LOWER CHEST: No significant findings. No nodules or infiltrates. LIVER: Normal size. No masses. No dilated ducts. SPLEEN: Normal size. No focal lesions. PANCREAS: No masses. No significant calcifications. No adjacent inflammation or peripancreatic fluid collections. Pancreatic duct not dilated. GALLBLADDER: No identified stones by CT criteria. No inflammatory changes to suggest cholecystitis. ADRENAL GLANDS: No significant masses or asymmetry. RIGHT KIDNEY AND URETER: No solid masses. No significant calcifications. No hydronephrosis or hyd roureter. LEFT KIDNEY AND URETER: No solid masses. No significant calcifications. No hydronephrosis or hydr oureter. AORTA AND VESSELS: No aneurysm. No dissection. Renal arteries, SMA, celiac without stenosis. RETROPERITONEUM: No retroperitoneal adenopathy, hemorrhage or masses. BOWEL AND PERITONEAL CAVITY: No masses or inflammatory changes. No free fluid or peritoneal masses. APPENDIX: Normal. PELVIS: No mass. No free fluid. Normal bladder. ABDOMINAL WALL: No masses. No hernias. BONES: No significant or acute findings. OTHER: No other significant finding. IMPRESSION: NO SIGNIFICANT OR ACUTE FINDING IN THE ABDOMEN OR PELVIS ON CT SCAN WITH IV CONTRAST. TECHNICAL DOCUMENTATION: JOB ID: [id number] Quality ID # [id number]: Final reports with documentation of one or more dose reduction techniques (e.g., Au tomated exposure control, adjustment of the mA and/or kV according to patient size, use of iterative reconstruction technique) 2010 [employer]- All Rights Reserved Reading location - IP/workstation name: [email or web address]
== END 2019-10-23 11:05 | disposition left against medical advice (07) ==
LOC: ER 08:31
DX: R11.2 Nausea with vomiting, unspecified (principal); R10.13 Epigastric pain; R19.7 Diarrhea, unspecified; R10.816 Epigastric abdominal tenderness; F17.200 Nicotine dependence, unspecified, uncomplicated; F12.10 Cannabis abuse, uncomplicated; Z98.51 Tubal ligation status; Z53.29 Procedure and treatment not carried out because of patient's decision for other reasons; Z91.040 Latex allergy status
CPT/HCPCS: 99281; 96361; 96374; 36415; 83690; 85025; 81025; 80053; 81001; 74177; J0780; J2405; J7030

== ENCOUNTER 2020-04-07 11:25 | Emergency (ER) | payer SELFPAY ==
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
--- NOTE | 2020-04-07 12:07 | RADIOLOGY REPORT (SQ) ---
EXAM DESCRIPTION: CT FACIAL AREA WITHOUT IMAGES COMPLETED DATE/TIME: 04/07/2020 11:48 am REASON FOR STUDY: eval for right facial fracture COMPARISON: None. TECHNIQUE: Noncontrasted images through the facial bones and orbits windowed for bone and soft tissu e. Additional coronal and sagittal reconstructed images reviewed. All images stored on PACS. All CT scanners at this facility use dose modulation, iterative reconstruction, and/or weight based d osing when appropriate to reduce radiation dose to as low as reasonably achievable (ALARA). [facility]: Dose Right [facility]: CareDose [facility]: Dose Right [facility]: Teradose 4D [facility]: Smart Mithridion RADIATION DOSE: CT Rad equipment meets quality standard of care and radiation dose reduction techniq ues were employed. CTDIvol: 30.4 mGy. DLP: 597 mGy-cm. mGy. LIMITATIONS: None. FINDINGS: FACIAL BONES: No fracture or bone lesion. ORBITS: Intact. No fracture. Symmetric intact globes and retroorbital soft tissues. PARANASAL SINUSES: Sphenoid and ethmoid sinus disease. SOFT TISSUES: No mass or edema. INFERIOR BRAIN: Limited view. No acute findings. OTHER: No other significant finding. IMPRESSION: Maxillary sinus disease. No acute fracture. TECHNICAL DOCUMENTATION: JOB ID: [id number] Quality ID # [id number]: Final reports with documentation of one or more dose reduction techniques (e.g., Au tomated exposure control, adjustment of the mA and/or kV according to patient size, use of iterative reconstruction technique) 2010 [employer]- All Rights Reserved Reading location - IP/workstation name: [email or web address]
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
[2020-04-07 12:41] VITALS: BP 139/100
== END 2020-04-07 12:39 | disposition home or self-care (01) ==
LOC: ER 11:25
DX: S40.012A Contusion of left shoulder, initial encounter (principal); S09.93XA Unspecified injury of face, initial encounter; J32.0 Chronic maxillary sinusitis; Y04.2XXA Assault by strike against or bumped into by another person, initial encounter; F17.200 Nicotine dependence, unspecified, uncomplicated; Z98.51 Tubal ligation status; Z91.040 Latex allergy status
CPT/HCPCS: 70486; 99284